=== PATIENT | female | born 1975 | race Caucasian/White ===

== ENCOUNTER → 2016-09-01 | Day surgery (SDC) | payer OTHER ==
--- NOTE | 2016-08-31 07:29 | SC.ANESEVA ---
Anesthesia Eval & Plan ([facility]) - Medications/Allergies Current Medication List: Reviewed - Focused Physical Exam NPO since: Since after Midnight Mallampati: Class I Thyromental Distance: Greater than 3 Neck: Full Range of Motion Dental: Normal - no significant findings Cardiovascular/Chest: Normal (RRR no mumurs or rubs.) Respiratory: Lungs clear. negative: Wheezing Any problems with anesthesia, including nausea and vomiting?: No Any relatives with a history of Malignant Hyperthermia?: No Other: Diagnoses UNILATERAL PRIMARY OSTEOARTHRITIS, RIGHT KNEE (09/01/16) OTHER SPECIFIED JOINT DISORDERS, RIGHT KNEE (09/01/16) - Anesthetic Plan Anesthesia Type: General ASA Class: 2 - Focused Review of Systems Cardiac History: Yes: Hx Abnormal Cholesterol/Hyperlipidemia
[2016-08-31 11:26] VITALS: BMI 20.7
[~2016-09-01] MED LIST: BUPIVACAINE 0.25%-EPINEPHRINE 1:200,000 30 ML INF ONE; DEXAMETHASONE 4 MG/ML VIAL IV PRN; DEXAMETHASONE 4 MG/ML VIAL ONE; DIAZEPAM 5 MG TAB PO PRN; FENTANYL 100 MCG/2 ML VIAL IV PRN; FENTANYL 100 MCG/2 ML VIAL ONE; HYDROCODONE 5 MG/ACETAMIN 325 MG TAB PO PRN; KETOROLAC TROMETH 30 MG/ML VIAL IV PRN; KETOROLAC TROMETH 30 MG/ML VIAL ONE; LABETALOL 20 MG/4 ML SYRINGE IV PRN; LR 1,000 ML IV ONE; LR 1,000 ML IV SCH; MIDAZOLAM 2 MG/2 ML VIAL ONE; NS 1,000 ML IV SCH; NS 250 ML IV SCH; ONDANSETRON HCL 4 MG/2 ML VIAL IV PRN; ONDANSETRON HCL 4 MG/2 ML VIAL ONE; PROPOFOL 200 MG/20 ML VIAL IV ONE; SCOPOLAMINE TRANSDERMAL PATCH TOP PRN; hydrALAZINE 20 MG/ML VIAL IV PRN
--- NOTE | 2016-09-01 07:00 | PCM.DCS92 ---
Discharge Outpatient Note - Final/Secondary Discharge Diagnosis (1) Impingement of right knee joint Acute M25.861 - OTHER SPECIFIED JOINT DISORDERS, RIGHT KNEE [id number] Physician Follow up/Referrals: Mars Gates MD [Staff Physician] - Listed Time Additional Instructions: Instructions given: 09/01/16 Prescriptions (given at the office) Diet as tolerated Discharge Instructions: * Apply ice to the surgical site for 15-20 minutes out of each hour while awake for the first 2 days post-op, then apply as often as needed to control swelling and pain * Elevate the surgical extremity while sitting or lying down * Keep Bandage clean and dry * May shower after Physical Therapy appointment * Take stool softener while taking pain medication * Ambulate weight bearing as tolerated * No Driving until cleared * ASA 325 mg PO QD x 14 days Follow up in office as scheduled - Call office for any additional concerns. ) Follow up with Physical therapy as scheduled
--- NOTE | 2016-09-01 07:02 | HIMOPRPT ---
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 PROCEDURES: Right knee: 1. Arthroscopic microfracture of medial femoral condyle osteochondral defect 2. Patellofemoral chondroplasty 3. Limited synovectomy 4. Fat pad debridement 5. Loose body removal ANESTHESIA: General. SURGEON: Mars Gates MD. VOICE PROFESSOR: THAO Marie. SPECIMENS: None. COMPLICATIONS: None. TOURNIQUET TIME: 19 minute at 250 millimeters of mercury. IMPLANTS: None. FINDINGS: Synovitis involving the suprapatellar pouch and medial and lateral gutters of the knee. Grade 3 changes to the medial patellar facet along with grade 4 changes to the small area of the medial trochlea measuring approximately 6 x 6 mm. Grade 4 chondral defect of the medial femoral condyle weight-bearing surface measuring 1.2 cm in anterior to posterior width and 1 cm in medial to lateral with. Corresponding chondral piece found in the anterior aspect of the knee. SIGNIFICANT HISTORY, INDICATIONS, AND CONSENT: Jelena is a 41-year-old highly active female with long-standing history of knee pain and swelling as well as occasional mechanical symptoms recalcitrant to conservative treatment, who wished to proceed with surgical intervention for potential improvement in pain, swelling, and mechanical symptoms. Consent was obtained. OPERATION IN DETAIL: The patient was seen in the preop holding area. The right knee was signed. Consent was reviewed. Questions were answered. H and P updated. SCD placed on the contralateral lower extremity. The patient was taken to operating room, placed in supine position on the operating table. Anesthesia placed monitoring devices and performed LMA intubation. The right lower extremity had a tourniquet placed high up on the thigh with the contralateral lower extremity in a well leg borden and the right leg in the leg borden. The lower extremity was then sterilely prepped and draped in usual orthopedic fashion. Time-out was performed. Patient received prophylactic antibiotics. Consensus was reached amongst participants in the OR suite. Next, Esmarch was used to exsanguinate the limb. Tourniquet raised to 250 millimeter of mercury. Standard anteromedial and lateral as well as superomedial outflow portals were created. Diagnostic arthroscopy was then performed. The suprapatellar pouch was found to have mild to moderate synovitis along with the medial and lateral gutters. 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 Medial patellar facet had grade 3 changes present with some unstable cartilaginous flaps. There was a small 6 mm x 6 mm area involving the medial trochlea with grade 4 changes present. Patellar tracking was assessed and found to be acceptable. A chondroplasty was performed involving the patella removing unstable cartilaginous flaps. Hoffa's fat pad appeared to be scarred and was removed with impingement signs on examination. This was debrided using a shaver. After debridement of the fat pad the ACL and PCL were probed and found to be intact however some degenerative changes were present. The lateral compartment of the knee was entered with some very fine tearing of the central portion lateral meniscus however for the most part the articular cartilage and meniscus were without pathology. The medial compartment of the knee was then entered and no medial meniscus tear was present. There was some grade 2 and early 3 changes to the weight-bearing surface of the medial tibial plateau. Medial femoral condyle was inspected and a 1.2 cm in anterior to posterior width and 1 cm in medial to lateral with full-thickness osteochondral defect was presents with exposed bone. The corresponding chondral fragment was identified in the anterior aspect of the knee and removed after being cut into smaller pieces. Although the lesion was not well shouldered laterally, because of her high activity level we decided to proceed with a microfracture. A curette was used to remove unstable cartilaginous flaps from the periphery of the lesion. Curette was also used to create a healing bony bed. We then used a microfracture awl to place several small holes in the subchondral plate approximately 2-3 mm space from 1 another and approximately 45 mm deep. The lesion was well shouldered medially. Next, the tourniquet was released and a crimson duvet a was observed. Instruments were removed. Incision sites were closed with 4-0 nylon suture. Tourniquet was released. The subcutaneous tissue was injected with 0.25% Marcaine at the incision sites and closed with 3-0 nylon suture. Sterile soft tissue dressings were placed. Patient was aroused by Anesthesia and taken to Postanesthesia Care Unit in stable condition. PLAN: The patient will be discharged home when okay with Anesthesia. Prescriptions were given for p.r.n. pain, constipation, nausea, and vomiting. He will return to clinic postop day 10 for suture removal wound check. Begin physical therapy for quad strengthening and range of motion on postop day 3. Immediately begin 500 cycles of knee range of motion daily. Nonweightbearing right lower extremity. Recommend ASA 325 mg PO BID x14 days for DVT chemoprophylaxis.
[2016-09-01 08:15] VITALS: TEMP 97
[2016-09-01 08:24] VITALS: BP 130/81; PULSE 93
--- NOTE | 2016-09-01 09:44 | SC.ANESPOS ---
Post-Anesthesia Note LOC: Fully Awake Post-Anesthesia Assessment: Awake, Returned to Baseline, Hemodynamically Stable , Pain Control Adequate Phase I & II Recovery Complete: Yes Apparent Anesthesia Complication: No : N - Vital Signs Blood Pressure: 130/81 Pulse: 93 Resp Rate: 16 O2 Sat: 98 Temp: 97.0 F
== END ==
LOC: CPSC 06:22
PROVIDERS: ATTEND Orthopaedic Surgery
PROC: 0SBC4ZZ Excision of Right Knee Joint, Percutaneous Endoscopic Approach (ICD-10-PCS; 2016-09-01)
PROC: 0SQC4ZZ Repair Right Knee Joint, Percutaneous Endoscopic Approach (ICD-10-PCS; principal; 2016-09-01 07:15)
DX: M25.861 Other specified joint disorders, right knee (principal); M17.11 Unilateral primary osteoarthritis, right knee; M65.861 Other synovitis and tenosynovitis, right lower leg; M06.9 Rheumatoid arthritis, unspecified; E78.00 Pure hypercholesterolemia, unspecified; Z79.899 Other long term (current) drug therapy
CPT/HCPCS: 29879; J1100; J1885; J2250; J2405; J2704; J3010; J3490